=== PATIENT | female | born 1965 | race Caucasian/White ===

== ENCOUNTER 2017-08-25 15:56 | Emergency (ER) | payer BC, OTHER ==
--- NOTE | 2017-08-25 16:02 | UC ---
Laceration HPI - HPI Summary HPI Summary: 52 year old female presents with complains of left index finger laceration. 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 TUBAL LIGATION MANY YEARS AGO. 2010 LEFT INGUINAL HERNIA [place]PAIR, [facility] [place]GERY TO INSERT MESH TO SUPPORT BLADDER AND UTERUS, (states mesh attatched to spine). 2014 RIGHT FOOT BUNIONECTOMY, [facility] [place]. 09/2015 REMOVAL OF SCREW RIGHT FOOT FIRST METATARSAL, [facility] [place] - Family History Known Family History: Negative: Blood Disorder - Social History Alcohol Use: Rare Alcohol Amount: HOLIDAYS Substance Use Type: None Smoking Status (MU): Heavy Every Day Tobacco Smoker Type: Cigarettes Amount Used/How Often: PACK A DAY FOR ABOUT 25 YEARS Length of Time of Smoking/Using Tobacco: 30 YRS Have You Smoked in the Last Year: Yes - Immunization History Most Recent Tetanus Shot: UNKNOWN Review of Systems Constitutional: Negative Skin: Other - left index finger laceration Eyes: Negative ENT: Negative Respiratory: Negative Cardiovascular: Negative Gastrointestinal: Negative Genitourinary: Negative Motor: Negative Neurovascular: Negative Musculoskeletal: Negative Neurological: Negative Psychological: Negative Is Patient Immunocompromised?: Yes All Other Systems Reviewed And Are Negative: Yes Physical Exam Triage Information Reviewed: Yes Vital Signs Reviewed: Yes Eye Exam: Normal ENT Exam: Normal Dental Exam: Normal Neck exam: Normal Neck: Positive: 1 Respiratory Exam: Normal Cardiovascular Exam: Normal Abdominal Exam: Normal Musculoskeletal Exam: Normal Neurological Exam: Normal Psychological Exam: Normal Skin: Positive: Other - left index finger laceration Laceration Repair - Laceration Repair 1 Description: Irregular Laceration Size After Repair: Length (cm) - 2.5 to 5 cm Type Injection: Local Anesthesia Used: 1.0% Lido Cleansing Completed Via Routine Prep: Yes Irrigation With Pressure Irrigation Device: Yes Closure Material: Sutures Closure Method: Single Layer Suture Of: Skin Suture Type: Other - ethilon 5.0 #4 Laceration Course/Dx - Differential Dx - Laceration/Wound Provider Diagnoses: left index finger laceration Discharge - Discharge Plan Condition: Stable Disposition: HOME Prescriptions: Cephalexin CAP* [Keflex CAP*] 500 mg PO TID #30 cap Fluconazole [Diflucan 150 MG (NF)] 150 mg PO ONCE #1 tab Patient Education Materials: Laceration (ED) Forms: *Work Release Referrals: Aishwarya Mercado MD [Primary Care Provider] -
[2017-08-25 16:09] VITALS: BP 115/66
[2017-08-25] MEDS ORDERED: Lidocaine 1% MPF* 2 ML VIAL INJ ONE (16:13)
[2017-08-25] MEDS ORDERED: Lidocaine 1% MPF* 2 ML VIAL ONE (16:14)
== END 2017-08-25 16:55 | disposition home or self-care (01) ==
LOC: UCCORT 15:56
DX: S61.211A Laceration without foreign body of left index finger without damage to nail, initial encounter (principal); X58.XXXA Exposure to other specified factors, initial encounter
CPT/HCPCS: 12002; 99212; G0463

== ENCOUNTER 2017-10-29 18:35 | Emergency (ER) | payer BC, MEDICAID ==
--- OUTSIDE RECORDS SUMMARY | 2017-10-29 18:49 | XMS REPORT ---
:1965 External Reference #:[id number] Author Organization [facility] 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 Payers Type Date Identification Numbers Payment Provider Subscriber Commercial Policy Number: BC/BS Traditional Scott Hanson [id number] Ppo Group Number: EMPERATRIZ DONATO [address] [address] [place] [address] Medigap Part B Policy Number: [id number] Medicaid/[employer] Nida Hanson PayID: [id number] [address] [place] [address] Problems Description No Information Family History Date Family Member(s) Problem(s) Comments : (age 73 Years) Father due to Heart Disease : (age 67 Years) Mother due to Breast Cancer Children 2 Social History Type Date Description Comments Marital Status Has been 1 time 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 WITH 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 ETOH Use Occasionally consumes alcohol Smoking Patient is a current smoker, smokes SMOKES ABOUT 1 PPD-STARTED AT every day 19 YO Daily Caffeine Consumes on average 2 liters of soda per day Daily Caffeine Used To Drink Energy Drinks Often Allergies, Adverse Reactions, Alerts Date Description Reaction Status Severity Comments 09/06/2015 NKDA active Medications Medication Date Status Form Strength Qnty SIG Indications Ordering Provider Azithromycin Active Tablets 250mg 6tabs 2 tabs by J20.9 Aishwarya Mercado 7 mouth on M., MJose Angel day 1, then 1 tab by mouth every day x 4 days J01.90 Prednisone 10/26/2017 Active Tablets 20mg 20tabs 2 tab by mouth daily J20.9 Rogelio, 4 days,30mg Ahmad [id number] Harpreet Genao Benzonatate 10/26/2017 Active Capsules 200mg 30caps 1 cap by mouth three R05 Rogelio, times a day as Ahmad needed Harpreet Genao Cheratussin 10/23/2017 Hx Syrup 100-1 150unit teaspoon 1 every 4 R05 Rogelio, ac - 0mg/5 s hours as needed Ahmad 11/02/2017 ML Harpreet Genao Omeprazole 07/16/2017 Active Capsules 40mg 90caps 1 by mouth every day K21.9 Rogelio, DR Aishwarya Genao M.D. Amoxicillin/C 10/02/2017 Hx Tablets 875-1 20tabs 1 tab by mouth twice J01.90 [facility], lavulanate - 25mg a day Ahmad Potassium 10/12/2017 Harpreet Genao J2Bob Methylprednisolone 10/02/2017 - Hx TBPK 4mg 21units take tabs by J20Aliya Rogelio, 10/07/2017 mouth daily Ahmad per Harpreet Genao instructions on dose pack Benzonatate 10/02/2017 - Hx Capsules 200mg 30caps 1 Cap PO tid J20.9 Rogelio, 10/09/2017 prn Aishwarya Genao M.D. R05 Bacitracin 07/16/2017 - Hx Ointment 500Unit/GM 30gm apply to L02.91 [facility], (External) 07/23/2017 affected Aishwarya Genao, area three M.DJuan times a day as needed till healed No Active 03/17/2016 - Hx Unknown Medications 07/16/2017 Amoxicillin 01/10/2016 - Hx Tablets 500mg 40tabs 2 by mouth Rogelio, 01/20/2016 twice a Ahmad M., day M.D. Prednisone 01/10/2016 - Hx Tablets 20mg 8tabs 2 tab by Rogelio, 01/14/2016 mouth Ahmad M., daily 4 M.D. days Diflucan 01/10/2016 - Hx Tablets 150mg 2tabs 1 tab by Rogelio, 01/12/2016 mouth Aishwarya Genao, today and M.DJuan repeat in 1 wk prn Cheratussin ac 01/10/2016 - Hx Syrup 100-10mg/5ML 473ml 2 teaspoon Rogelio, 01/20/2016 by mouth Aishwarya Genao, every 4 M.D. hours as needed Betamethasone 09/06/2015 - Hx Cream 0.05% 45GR apply to L20.89 [facility], Dipropionate 03/17/2016 affected Aishwarya Genao, area twice M.D. a day as needed Ibuprofen - Hx Tablets 800mg prn Unknown 03/17/2016 Immunizations CPT Code Status Date Vaccine Lot # [id number] Given 09/06/2015 Flu Vaccine Vital Signs Date Vital Result Comment 10/26/2017 BP Systolic 102 mmHg BP Diastolic 58 mmHg Height 62 inches 5'2" Weight 123.00 lb BMI (Body Mass Index) 22.5 kg/m2 Heart Rate 77 /min Body Temperature 96.5 F Respiratory Rate 16 /min 10/23/2017 BP Systolic 102 mmHg BP Diastolic 60 mmHg Height 62 inches 5'2" Weight 123.00 lb BMI (Body Mass Index) 22.5 kg/m2 Heart Rate 70 /min Body Temperature 97.5 F Respiratory Rate 16 /min 10/02/2017 BP Systolic 100 mmHg BP Diastolic 60 mmHg Height 62 inches 5'2" Weight 123.00 lb BMI (Body Mass Index) 22.5 kg/m2 Heart Rate 84 /min Body Temperature 97.0 F Respiratory Rate 16 /min 08/03/2017 BP Systolic 102 mmHg BP Diastolic 60 mmHg Height 62 inches 5'2" Weight 121.00 lb BMI (Body Mass Index) 22.1 kg/m2 Heart Rate 80 /min Respiratory Rate 16 /min 07/16/2017 BP Systolic 116 mmHg BP Diastolic 62 mmHg Height 62 inches 5'2" Weight 120.00 lb BMI (Body Mass Index) 21.9 kg/m2 Heart Rate 72 /min Respiratory Rate 16 /min 01/10/2016 BP Systolic 98473 mmHg Height 62 inches 5'2" Weight 137.00 lb BMI (Body Mass Index) 25.1 kg/m2 Heart Rate 90 /min Body Temperature 97.4 F Respiratory Rate 20 /min 09/21/2015 BP Systolic 122 mmHg BP Diastolic 76 mmHg Height 62 inches 5'2" Weight 131.00 lb BMI (Body Mass Index) 24.0 kg/m2 Heart Rate 72 /min Respiratory Rate 12 /min 09/06/2015 BP Systolic 116 mmHg BP Diastolic 74 mmHg Height 62 inches 5'2" Weight 129.00 lb BMI (Body Mass Index) 23.6 kg/m2 Heart Rate 80 /min Respiratory Rate 16 /min Results Test Date Test Result H/L Range Note CBC With Diff 07/16/2017 WBC 7.3 10*3/uL (4.1-11.0) RBC 4.79 10*6/uL (4.00-5.40) HGB 14.1 g/dL (12.0-16.0) HCT 41.4 % (36.0-47.0) MCV 86.3 fL (80.0-95.0) MCH 29.4 pg (27.0-32.0) MCHC 34.0 g/dL (32.0-36.0) RDW 13.3 % (10.5-14.5) PLT 272 10*3/uL (150-450) MPV 9.4 fL (7.1-10.7) Neut % 63.7 % (35.0-75.0) Lymph % 28.3 % (16.0-52.0) [place] % 6.0 % (0.0-8.0) Eos % 0.9 % (0.0-5.0) Baso % 1.1 % (0.0-4.0) Neut # 4.6 10*3/uL (1.8-7.7) Lymph # 2.1 10*3/uL (1.2-4.8) [place] # 0.4 10*3/uL (0.0-0.8) Eos # 0.1 10*3/uL (0.0-0.5) Baso # 0.1 10*3/uL (0.0-0.2) CMP 07/16/2017 Sodium 140 mmol/L (136-145) Potassium 3.7 mmol/L (3.6-5.2) Chloride 107 mmol/L (100-108) Co2 25 mmol/L (22-31) Anion Gap 8 mmol/L (7-16) Urea Nitrogen 9 mg/dL (7-24) Creatinine 0.67 mg/dL (0.60-1.00) BUN/Creat Ratio 13.4 RATIO (10.0-20.0) Glucose 74 mg/dL (70-99) Calcium 8.4 mg/dL (8.4-10.2) Total Protein 6.6 g/dL (6.4-8.2) Albumin 3.9 g/dL (3.5-4.6) Globulin 2.7 g/dL (2.7-4.3) Alb/Glob Ratio 1.4 RATIO Alkaline Phosphatase 57 U/L (45-117) Bilirubin,Total 0.6 mg/dL (0.0-1.0) Ast (Sgot) 15 U/L (11-39) Alt (SGPT) 15 U/L (12-78) GFR >60 ml/min/1.73m2 (>59) GFR ( Amer) >60 ml/min/1.73m2 (>59) GFR Interpretation <SEE NOTE> 1 Laboratory test finding 07/16/2017 Amylase 58 U/L (25-115) Lipase 149 U/L (65-230) Esr 2 mm/h (0-30) CBC With Diff 09/21/2015 WBC 5.8 10*3/uL (4.1-11.0) RBC 4.88 10*6/uL (4.00-5.40) HGB 14.3 g/dL (12.0-16.0) HCT 43.5 % (36.0-47.0) MCV 89.1 fL (80.0-95.0) MCH 29.2 pg (27.0-32.0) MCHC 32.8 g/dL (32.0-36.0) RDW 13.0 % (10.5-14.5) PLT 288 10*3/uL (150-450) MPV 9.0 fL (7.1-10.7) Neut % 63.2 % (35.0-75.0) Lymph % 25.9 % (16.0-52.0) [place] % 6.7 % (0.0-8.0) Eos % 2.8 % (0.0-5.0) Baso % 1.4 % (0.0-4.0) Neut # 3.6 10*3/uL (1.8-7.7) Lymph # 1.5 10*3/uL (1.2-4.8) [place] # 0.4 10*3/uL (0.0-0.8) Eos # 0.2 10*3/uL (0.0-0.5) Baso # 0.1 10*3/uL (0.0-0.2) CMP 09/21/2015 Sodium 142 mmol/L (136-145) Potassium 3.6 mmol/L (3.6-5.2) Chloride 108 mmol/L (100-108) Co2 27 mmol/L (22-31) Anion Gap 7 mmol/L (7-16) Urea Nitrogen 13 mg/dL (7-24) Creatinine 0.80 mg/dL (0.60-1.00) BUN/Creat Ratio 16.3 RATIO (10.0-20.0) Glucose 75 mg/dL (70-99) Calcium 8.6 mg/dL (8.4-10.2) Total Protein 6.6 g/dL (6.4-8.2) Albumin 3.8 g/dL (3.5-4.6) Globulin 2.8 g/dL (2.7-4.3) Alb/Glob Ratio 1.4 RATIO Alkaline Phosphatase 71 U/L (45-117) Bilirubin,Total 0.5 mg/dL (0.0-1.0) Ast (Sgot) 13 U/L (11-39) Alt (SGPT) 13 U/L (12-78) GFR >60 ml/min/1.73m2 (>59) GFR ( Amer) >60 ml/min/1.73m2 (>59) GFR Interpretation <SEE NOTE> 2 1 NORMAL KIDNEY FUNCTION OR MILD DISEASE - GFR >OR=60 CHRONIC KIDNEY DISEASE - GFR 15 - 59 RENAL FAILURE - GFR <15 Est. GFR calculation based on the MDRD study equation, which assumes a steady state for creatinine. Est. GFR should not be used for medication dosing. 2 NORMAL KIDNEY FUNCTION OR MILD DISEASE - GFR >OR=60 CHRONIC KIDNEY DISEASE - GFR 15 - 59 RENAL FAILURE - GFR <15 Est. GFR calculation based on the MDRD study equation, which assumes a steady state for creatinine. Est. GFR should not be used for medication dosing. Procedures Date CPT Code Description Status 10/26/2017 91479 Spirometry Completed 10/23/2017 85980 Spirometry Completed 10/23/2017 11953 Tympanometry Completed 01/10/2016 77625 Spirometry Completed 01/10/2016 38784 Tympanometry Completed 09/06/2015 11173 Visual Screening Test Completed 09/06/2015 09932 EKG Completed 09/06/2015 83681 Audiometry, Bekesy, Screening Completed Encounters Type Date Location Provider CPT E/M Dx Office Visit 10/26/2017 2:30[place] [address] J30.9 F17.210 L20.9 K58.0 K21.9 R09.81 J01.90 J20.9 R06.02 R05 Office Visit 10/23/2017 10:15a Fabián Ling [employer] 22414 R05 R50.9 H92.09 Office Visit 10/02/2017 11:30[place] [address] J30.9 F17.210 L20.9 K58.0 K21.9 R05 R09.81 J01.90 J20.9 R06.02 Office Visit 08/03/2017 4:45p Aishwarya Aamdor M.D. 76169 J30.9 F17.210 L20.9 R10.84 K58.0 K21.9 L02.91 Office Visit 07/16/2017 11:30a Aishwarya Amador M.D. 33338 J30.9 F17.210 L20.9 R10.84 K58.0 K21.9 L02.91 Office Visit 01/10/2016 2:00p Aishwarya Amador M.D. 71789 J20.9 J01.40 H66.93 R05 R06.02 R09.81 J30.9 F17.210 L20.9 Office Visit 09/21/2015 8:30a Fabián Ling [facility] [address]7877 Z01.818 F17.200 M79.671 Office Visit 09/06/2015 1:30p Fabián Ling [facility] 15753 Z00.01 F17.200 R05 E55.9 E03.9 L20.89 Plan of Care 10/26/2017 - Jean Paul Sung PAJ30.9 Allergic rhinitis, unspecifiedComments: INCREASE PO FLUID USE ANTIHISTAMINE PRN SECOND HAND SMOKING AVOIDANCE SMOKING MAHRDHKYVE30.210 Nicotine dependence, cigarettes, uncomplicatedComments:SMOKING CESSATION BCCIRNBYWKFO62.9 Atopic dermatitis, unspecifiedComments:SKIN CARE INSTRUCTIONS LOTION OR BABY OIL 2-3 APPLICATION PER DAYUSE MOISTURIZING SOAPAVOID PROLONGED WATER EXPOSUREAVOID USING HOT WATER IN EURQBEE41.0 Irritable bowel syndrome with diarrheaComments:TYLENOL OR MOTRIN PRNINCREASE PO FLUIDF/U PIMSWSNNN08.9 Gastro-esophageal reflux disease without esophagitisComments:AVOID CAFFEINE, ETOH AND SPICY FOODSTUMS OR MYLANTA PRN CALL WITH PROBLEMS OR CONCERNSSMOKING OQVNLFSUSA03.81 Nasal congestionComments: INCREASE PO FLUIDTYLENOL OR MOTRIN PRNREST USE ANTIHISTAMINE PRNJ01.90 Acute sinusitis, unspecifiedNew Medication:Azithromycin 250 mgComments:INCREASE PO FLUIDTYLENOL OR MOTRIN PRNREST USE ANTIHISTAMINE PRNJ20.9 Acute bronchitis, unspecifiedNew Medication:Azithromycin 250 mgPrednisone 20 mgComments:INCREASE PO FLUIDTYLENOL OR MOTRIN PRNREST USE ANTIHISTAMINE PRN NEB OR MDI PRN XBKXEFJPGCV72.02 Shortness of breathComments:INCREASE PO FLUIDSREST REGULARLYNEB OR MDI [id number] CoughNew Medication:Benzonatate 200 mgComments: INCREASE CLEAR LIQUIDSSTEAMGARGLE WARM SALT H2O TID ROBITUSSIN DM PRN
--- OUTSIDE RECORDS SUMMARY | 2017-10-29 18:50 | XMS REPORT ---
:1965 External Reference #:[id number] Author Organization [facility] Address [address] [place] [address] Phone [phone] Care Team Providers Name Role Phone Aishwarya Mercado MD Care Team Information Pattern Cutter Unavailable Payers Type Date Identification Numbers Payment Provider Subscriber Commercial Policy Number: BC/BS Traditional Scott Hanson [id number] Ppo Group Number: EMPERATRIZ DONATO [address] [address] [place] [address] Medigap Part B Policy Number: [id number] Medicaid/[employer] Nida Hanson PayID: [id number] [address] [place] [address] Problems Description No Information Family History Date Family Member(s) Problem(s) Comments : (age 73 Years) Father due to Heart Disease : (age 67 Years) Mother due to Breast Cancer Children 2 Social History Type Date Description Comments Marital Status Has been 1 time 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 needed Omeprazole 07/16/ Active Capsules 40mg 90caps 1 by mouth K21.9 Rogelio, 2017 every day Aishwarya Genao M.D. Amoxicillin/Cl 10/02/ Hx Tablets 875-125mg 20tabs 1 tab by J01.90 Rogeloi avulanate 2016 - mouth Aishwarya Genao, Potassium 10/12/ twice a M.D. 2016 day J20.9 Methylprednisolone 10/02/2017 - Hx TBPK 4mg 21units take tabs by J20.9 Rogelio, 10/07/2017 mouth daily Ahbryon Genao M.D. instructions on dose pack Benzonatate 10/02/2017 - Hx Capsules 200mg 30caps 1 Cap PO tid J20.9 Rogelio, 10/09/2017 prn Aishwarya Genao M.D. R05 Bacitracin 07/16/2017 - Hx Ointment 500Unit/GM 30gm apply to L02.91 Rogelio, (External) 07/23/2017 affected Aishwarya Genao, area three M.D. times a day as needed till healed No Active 03/17/2016 - Hx Unknown Medications 07/16/2017 Amoxicillin 01/10/2016 - Hx Tablets 500mg 40tabs 2 by mouth Rogelio, 01/20/2016 twice a Aishwarya Genao, day M.D. Prednisone 01/10/2016 - Hx Tablets 20mg 8tabs 2 tab by Rogelio, 01/14/2016 mouth Aishwarya Genao, daily 4 M.D. days Diflucan 01/10/2016 - Hx Tablets 150mg 2tabs 1 tab by Rogelio, 01/12/2016 mouth Aishwarya Genao, today and M.D. repeat in 1 wk prn Cheratussin ac 01/10/2016 - Hx Syrup 100-10mg/5ML 473ml 2 teaspoon Rogelio, 01/20/2016 by mouth Aishwarya Genao, every 4 M.D. hours as needed Betamethasone 09/06/2015 - Hx Cream 0.05% 45GR apply to L20.89 Rogelio, Dipropionate 03/17/2016 affected Aishwarya Genao, area twice M.D. a day as needed Ibuprofen - Hx Tablets 800mg prn Unknown 03/17/2016 Immunizations CPT Code Status Date Vaccine Lot # [id number] Given 09/06/2015 Flu Vaccine Vital Signs Date Vital Result Comment 10/23/2017 BP Systolic 102 mmHg BP Diastolic [...] Respiratory Rate 16 /min 01/10/2016 BP Systolic 97163 mmHg Height 62 inches 5'2" Weight 137.00 [...] % (35.0-75.0) Lymph % 28.3 % (16.0-52.0) [place] % 6.0 % (0.0-8.0) Eos % 0.9 % (0.0-5.0) Baso % 1.1 % (0.0-4.0) Neut # 4.6 10*3/uL (1.8-7.7) Lymph # 2.1 10*3/uL (1.2-4.8) [place] # 0.4 10*3/uL (0.0-0.8) Eos # 0.1 [...] % (35.0-75.0) Lymph % 25.9 % (16.0-52.0) [place] % 6.7 % (0.0-8.0) Eos % 2.8 % (0.0-5.0) Baso % 1.4 % (0.0-4.0) Neut # 3.6 10*3/uL (1.8-7.7) Lymph # 1.5 10*3/uL (1.2-4.8) [place] # 0.4 10*3/uL (0.0-0.8) Eos # 0.2 [...] dosing. Procedures Date CPT Code Description Status 10/23/2017 55638 Spirometry Completed 10/23/2017 10833 Tympanometry Completed 01/10/2016 60110 Spirometry Completed 01/10/2016 94087 Tympanometry Completed 09/06/2015 92071 Visual Screening Test Completed 09/06/2015 57837 EKG Completed 09/06/2015 82499 Audiometry, Bekesy, Screening Completed Encounters Type Date Location Provider CPT E/M Dx Office Visit 10/02/2017 11:30[place] [address] J30.9 F17.210 L20.9 K58.0 K21.9 R05 R09.81 J01.90 J20.9 R06.02 Office Visit 08/03/2017 4:45p Aishwarya Amador M.D. 70730 J30.9 F17.210 L20.9 R10.84 K58.0 K21.9 L02.91 Office Visit 07/16/2017 11:30a Aishwarya Amador M.D. 17481 J30.9 F17.210 L20.9 R10.84 K58.0 K21.9 L02.91 Office Visit 01/10/2016 2:00p Aishwarya Amador M.D. 84828 J20.9 J01.40 H66.93 R05 R06.02 R09.81 J30.9 F17.210 L20.9 Office Visit 09/21/2015 8:30a Ina Brown Fabián [facility] 59925 Z01.818 F17.200 M79.671 Office Visit 09/06/2015 1:30p Fabián Ling [facility] 78535 Z00.01 F17.200 R05 E55.9 E03.9 L20.89 Plan of Care 10/23/2017 - Fabián Brown [id number] CoughNew Medication:Cheratussin ac 100-10 mg/ 5MLR50.9 Fever, unspecifiedComments:TYLENOL/IBUPROFEN ALTERNATING Q 3-4 HRSINCREASE FLUIDS
--- OUTSIDE RECORDS SUMMARY | 2017-10-29 18:50 | XMS REPORT ---
:1965 External Reference #:[id number] Author Organization [facility] Address [address] [place] [address] Phone [phone] Care Team Providers Name Role Phone Aiswharya Mercado MD Care Team Information Telemarketer Unavailable Payers Type Date Identification Numbers Payment Provider Subscriber Commercial Policy Number: BC/BS Traditional Scott Hanson [id number] Ppo Group Number: EMPERATRIZ DONATO [address] [address] [place] [address] Medigap Part B Policy Number: [id number] Medicaid/[employer] Nida Hansno PayID: [id number] [address] [place] [address] Problems Description No Information Family History Date Family Member(s) Problem(s) Comments : (age 73 Years) Father due to Heart Disease : (age 67 Years) Mother due to Breast Cancer Children 2 Social History Type Date Description Comments Marital Status Has been 1 time 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 2018 needed Omeprazole 07/16/ Active Capsules 40mg 90caps 1 by mouth K21.9 [facility], 2017 DR every day Aishwarya Genao M.D. Amoxicillin/Cl 10/02/ Hx Tablets 875-125mg 20tabs 1 tab by J01.90 toya Mercado 2016 - mouth Aishwarya Genao, Potassium 10/12/ twice a M.D. 2016 day J20.9 Methylprednisolone 10/02/2017 - Hx TBPK 4mg 21units take tabs by J20.9 Rogelio, 10/07/2017 mouth daily Ahmamay Genao M.D. instructions on dose pack Benzonatate 10/02/2017 - Hx Capsules 200mg 30caps 1 Cap PO tid J20.9 Rogelio, 10/09/2017 prn Aishwarya Genao M.D. R05 Bacitracin 07/16/2017 - Hx Ointment 500Unit/GM 30gm apply to L02.91 [facility], (External) 07/23/2017 affected Aishwarya Genao, area [...] Hx Cream 0.05% 45GR apply to L20.89 [facility], Dipropionate 03/17/2016 affected Aishwarya M., area twice M.D. a day as needed Ibuprofen - Hx Tablets 800mg prn Unknown 03/17/2016 Immunizations CPT Code Status Date Vaccine Lot # [id number] Given 09/06/2015 Flu Vaccine Vital Signs Date [...] Respiratory Rate 16 /min 01/10/2016 BP Systolic 02412 mmHg Height 62 inches 5'2" Weight 137.00 [...] % (35.0-75.0) Lymph % 28.3 % (16.0-52.0) [place] % 6.0 % (0.0-8.0) Eos % 0.9 % (0.0-5.0) Baso % 1.1 % (0.0-4.0) Neut # 4.6 10*3/uL (1.8-7.7) Lymph # 2.1 10*3/uL (1.2-4.8) [place] # 0.4 10*3/uL (0.0-0.8) Eos # 0.1 [...] % (35.0-75.0) Lymph % 25.9 % (16.0-52.0) [place] % 6.7 % (0.0-8.0) Eos % 2.8 % (0.0-5.0) Baso % 1.4 % (0.0-4.0) Neut # 3.6 10*3/uL (1.8-7.7) Lymph # 1.5 10*3/uL (1.2-4.8) [place] # 0.4 10*3/uL (0.0-0.8) Eos # 0.2 [...] Procedures Date CPT Code Description Status 10/23/2017 04074 Spirometry Completed 10/23/2017 70111 Tympanometry Completed 01/10/2016 00377 Spirometry Completed 01/10/2016 11641 Tympanometry Completed 09/06/2015 10771 Visual Screening Test Completed 09/06/2015 17354 EKG Completed 09/06/2015 48087 Audiometry, Bekesy, Screening Completed Encounters Type Date Location Provider CPT E/M Dx Office Visit 10/23/2017 10:15a Fabián Ling [facility] [address] R05 R50.9 H92.09 Office Visit 10/02/2017 11:30[place] [address] J30.9 F17.210 L20.9 K58.0 K21.9 R05 R09.81 J01.90 J20.9 R06.02 Office Visit 08/03/2017 4:45p Aishwarya Amador M.D. 84584 J30.9 F17.210 L20.9 R10.84 K58.0 K21.9 L02.91 Office Visit 07/16/2017 11:30a Aishwarya Amador M.D. 71820 J30.9 F17.210 L20.9 R10.84 K58.0 K21.9 L02.91 Office Visit 01/10/2016 2:00p Aishwarya Amador M.D. 25645 J20.9 J01.40 H66.93 R05 R06.02 R09.81 J30.9 F17.210 L20.9 Office Visit 09/21/2015 8:30a Fabián Ling [facility] [address] Z01.818 F17.200 M79.671 Office Visit 09/06/2015 1:30p Fabián Ling [facility] [address] Z00.01 F17.200 R05 E55.9 E03.9 L20.89 Plan of Care 10/23/2017 - StephanieWilly FNPR05 CoughNew Medication:Cheratussin ac 100-10 mg/ 5MLR50.9 Fever, unspecifiedComments:TYLENOL/IBUPROFEN ALTERNATING Q 3-4 HRSINCREASE KDPZJXJ24.09 Otalgia, unspecified earComments:INCREASE PO FLUID
--- OUTSIDE RECORDS SUMMARY | 2017-10-29 18:51 | XMS REPORT ---
:1965 External Reference #:[id number] Author Organization [facility] Address [address] [facility]/[address] [place] [address] Phone [phone] Care Team Providers Name Role Phone Aishwarya Mercado MD Care Team Information Imaging Technologist Unavailable Payers Type Date Identification Numbers Payment Provider Subscriber Commercial Policy Number: BC/BS Traditional Scott Hanson [id number] Ppo Group Number: [employer] DONATO [address] [address] [place] [address] Medigap Part B Policy Number: [id number] Medicaid/[employer] Nida Hanson PayID: [id number] [address] [place] [address] Problems Description No Information Family History Date Family Member(s) Problem(s) Comments : (age 73 Years) Father due to Heart Disease : (age 67 Years) Mother due to Breast Cancer Children 2 Social History Type Date Description Comments Marital Status Has been 1 time NOT WITH 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 17 day J20.9 Methylprednisolone 10/02/2017 - Hx TBPK 4mg 21units take tabs by J20.9 Rogelio, 10/07/2017 mouth daily Aishwarya Genao M.D. instructions on dose pack Benzonatate 10/02/2017 - Hx Capsules 200mg 30caps 1 Cap PO tid J20.9 Rogelio, 10/09/2017 prn Aishwarya Genao M.D. R05 Omeprazole 07/16/2017 Active Capsules 40mg 90caps [address] Rogelio every day Aishwarya Genao M.D. Bacitracin 07/16/2017 - Hx Ointment 500Uni 30gm apply to L02.91 Rogelio, (External) 07/23/2017 t/GM affected Aishwarya Genao, area three M.D. times [...] prn Cheratussin ac 01/10/2016 - Hx Syrup 100-10 473ml 2 teaspoon [facility], 01/20/2016 mg/5ML by mouth Aishwarya Genao, every 4 M.D. hours as needed Betamethasone 09/06/2015 - Hx Cream 0.05% 45GR apply to L20.89 [facility] Dipropionate 03/17/2016 affected Ahmamay M., area twice M.D. a day as needed Ibuprofen - Hx Tablets 800mg prn Unknown 03/17/2016 Immunizations CPT Code Status Date Vaccine Lot # [id number] Given 09/06/2015 Flu Vaccine Vital Signs Date Vital Result Comment 10/02/2017 BP Systolic 100 mmHg BP Diastolic [...] Respiratory Rate 16 /min 01/10/2016 BP Systolic 28665 mmHg Height 62 inches 5'2" Weight 137.00 [...] % (35.0-75.0) Lymph % 28.3 % (16.0-52.0) Lake % 6.0 % (0.0-8.0) Eos % 0.9 % (0.0-5.0) Baso % 1.1 % (0.0-4.0) Neut # 4.6 10*3/uL (1.8-7.7) Lymph # 2.1 10*3/uL (1.2-4.8) Lake # 0.4 10*3/uL (0.0-0.8) Eos # 0.1 [...] % (35.0-75.0) Lymph % 25.9 % (16.0-52.0) Lake % 6.7 % (0.0-8.0) Eos % 2.8 % (0.0-5.0) Baso % 1.4 % (0.0-4.0) Neut # 3.6 10*3/uL (1.8-7.7) Lymph # 1.5 10*3/uL (1.2-4.8) Lake # 0.4 10*3/uL (0.0-0.8) Eos # 0.2 [...] dosing. Procedures Date CPT Code Description Status 01/10/2016 92342 Spirometry Completed 01/10/2016 61927 Tympanometry Completed 09/06/2015 48473 Visual Screening Test Completed 09/06/2015 97425 EKG Completed 09/06/2015 75758 Audiometry, Bekesy, Screening Completed Encounters Type Date Location Provider CPT E/M Dx Office Visit 10/02/2017 11:30[place] [address] J30.9 F17.210 L20.9 K58.0 K21.9 R05 R09.81 J01.90 J20.9 R06.02 Office Visit 08/03/2017 4:45p Aishwarya Amador M.D. 91510 J30.9 F17.210 L20.9 R10.84 K58.0 K21.9 L02.91 Office Visit 07/16/2017 11:30a Aishwarya Amador M.D. 34132 J30.9 F17.210 L20.9 R10.84 K58.0 K21.9 L02.91 Office Visit 01/10/2016 2:00p Aishwarya Amador M.D. 86601 J20.9 J01.40 H66.93 R05 R06.02 R09.81 J30.9 F17.210 L20.9 Office Visit 09/21/2015 8:30a Fabián Ling [facility] [address] Z01.818 F17.200 M79.671 Office Visit 09/06/2015 1:30p Fabián Ling [facility] [address]1890 Z00.01 F17.200 R05 E55.9 E03.9 L20.89 Plan of Care 10/02/2017 - Jean Paul Sung PAJ30.9 Allergic rhinitis, unspecifiedComments: INCREASE PO FLUID USE ANTIHISTAMINE PRN SECOND HAND SMOKING AVOIDANCE SMOKING LAPQOWYTAP57.210 Nicotine dependence, cigarettes, uncomplicatedComments:SMOKING CESSATION WJIZYBAEXIFA14.9 Atopic dermatitis, unspecifiedComments:SKIN CARE INSTRUCTIONS LOTION OR BABY OIL 2-3 APPLICATION PER DAYUSE MOISTURIZING SOAPAVOID PROLONGED WATER EXPOSUREAVOID USING HOT WATER IN QQWEHXR37.0 Irritable bowel syndrome with diarrheaComments:TYLENOL OR MOTRIN PRNINCREASE PO FLUIDF/U SPGRCJTIW14.9 Gastro-esophageal reflux disease without esophagitisComments:AVOID CAFFEINE, ETOH AND SPICY FOODSTUMS OR MYLANTA PRN CALL WITH PROBLEMS OR CONCERNSSMOKING [id number] CoughNew Medication: Benzonatate 200 mgComments:INCREASE CLEAR LIQUIDSSTEAMGARGLE WARM SALT H2O TID ROBITUSSIN DM PRNR09.81 Nasal plfyjbnuvzG85.90 Acute sinusitis, unspecifiedNew Medication:Amoxicillin/Clavulanate Potassium 875-125 mgComments:INCREASE PO FLUIDTYLENOL OR MOTRIN PRNREST USE ANTIHISTAMINE PRNJ20.9 Acute bronchitis, unspecifiedNew Medication:Amoxicillin/Clavulanate Potassium 875-125 mgMethylprednisolone 4 mgBenzonatate 200 mgR06.02 Shortness of breathComments: INCREASE PO FLUIDSREST REGULARLYNEB OR MDI NEEDED
[2017-10-29 19:02] VITALS: BP 156/81
[2017-10-29] MEDS ORDERED: Albuterol/Ipratropium NEB.SOL* Albuterol 2.5 MG/Ipratropium 0.5 MG 3 ML INH ONE (19:14)
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
[2017-10-29] MEDS ORDERED: Albuterol HFA INHALER* 8 gm MDI INH ONE (19:44)
[2017-10-29] MEDS ORDERED: Benzonatate CAP* 100 MG PO ONE (19:44)
== END 2017-10-29 20:10 | disposition home or self-care (01) ==
LOC: UCCORT 18:35
DX: R05 Cough (principal); F17.210 Nicotine dependence, cigarettes, uncomplicated; R03.0 Elevated blood-pressure reading, without diagnosis of hypertension
CPT/HCPCS: 99213; A9270-GY; G0463

== ENCOUNTER 2017-11-01 11:22 | Emergency (ER) | payer BC, MEDICAID ==
[2017-11-01 11:56] VITALS: BP 120/65
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
--- NOTE | 2017-11-01 13:34 | RAD ---
INDICATION: Cough. 6 for one month. Tobacco use. COMPARISON: December 17, 2008 chest radiograph and May 24, [address] TECHNIQUE: Dual energy PA and routine lateral views of the chest were obtained. REPORT: Elevated lung volumes and diffuse mild prominence of interstitial markings. No alveolar consolidation, focal pulmonary lesion, pleural effusion, pneumothorax. The heart, pulmonary vasculature, and mediastinal contours are unremarkable. Unremarkable osseous structures. IMPRESSION: Stigmata of probable chronic obstructive pulmonary disease. No acute cardiopulmonary process evident.
== END 2017-11-01 14:12 | disposition home or self-care (01) ==
LOC: UCCORT 11:22
DX: J44.9 Chronic obstructive pulmonary disease, unspecified (principal); J40 Bronchitis, not specified as acute or chronic; F17.210 Nicotine dependence, cigarettes, uncomplicated
CPT/HCPCS: 71046; 99212; G0463

== ENCOUNTER 2018-01-06 14:43 | Emergency (ER) | payer BC, MEDICAID, OTHER ==
[2018-01-06 15:42] VITALS: BP 120/70
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
== END 2018-01-06 16:14 | disposition home or self-care (01) ==
LOC: UCCORT 14:43
DX: T22.211A Burn of second degree of right forearm, initial encounter (principal); T22.112A Burn of first degree of left forearm, initial encounter; T31.0 Burns involving less than 10% of body surface; X19.XXXA Contact with other heat and hot substances, initial encounter; Y93.G2 Activity, grilling and smoking food; Y92.89 Other specified places as the place of occurrence of the external cause; Y99.9 Unspecified external cause status; F17.210 Nicotine dependence, cigarettes, uncomplicated
CPT/HCPCS: 99212; G0463

== ENCOUNTER 2018-03-26 14:57 | Emergency (ER) | payer OTHER ==
--- OUTSIDE RECORDS SUMMARY | 2018-03-26 15:21 | XMS REPORT ---
:1965 External Reference #:[id number] Author Organization [facility] Address [address] [facility]/[address] [place] [address] Phone [phone] Care Team Providers Name Role Phone Aishwarya Mercado MD Care Team Information Ship Engineer Unavailable Payers Type Date Identification Numbers Payment Provider Subscriber Commercial Policy Number: BC/BS Traditional Scott Hanson [id number] Ppo Group Number: [employer] DONATO [address] [address] [place] [address] Medigap Part B Policy Number: [id number] Medicaid/[employer] Nida Hanson PayID: [id number] [address] [place] [address] Problems Description No Information Family History Date Family Member(s) Problem(s) Comments : (age 73 Years) Father due to Heart Disease : (age 67 Years) Mother due to Breast Cancer Children 2 Social History Type Date Description Comments Marital Status Has been 1 time NOT WITH 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 2018 days, then 2 tab daily x 3 d , then 1 tab daily 3d Betamethasone 12/26/ Active Cream 0.05% 45unit apply to L20.9 Rogelio, Dipropionate 2017 s affected Aishwarya Genao, area three M.D. times a day as needed Omeprazole 12/26/ Active Capsules 40mg 90caps 1 by mouth R10.84 Rogelio 2018 every day Aishwarya Genao M.D. R11.0 K21.9 Bupropion HCL 12/26/2017 Active Tablets ER 150mg 30tabs 1 by mouth F17.210 Rogelio ER (XL) 24HR every day Aishwarya Genao M.D. F41.9 Azithromycin Hx Tablets 250mg 1Pack 2 by mouth H66.92 Adrian Schaefer - today then 1 MACARIO Ramsay by mouth 018 next 4 days Ciprodex Hx Suspension 0.3-0.1 7.500ml 3 drops to H62.42 Adrian Schaefer - % Left ear MACARIO Ramsay three times 018 a day x5 days Diflucan Hx Tablets 150mg 2tabs 1 tab by H66.92 Adrian Schaefer - mouth today MACARIO Ramsay and repeat 018 in 3 days No Active Hx Unknown Medications 018 - 018 Azithromycin Hx Tablets 250mg 6tabs 2 tabs by J20.9 Aishwarya Mercado 017 - mouth on day M.ChadwickDJuan 1, then 1 018 tab by mouth every day x 4 days J01.90 Prednisone 10/26/2017 - Hx Tablets 20mg 20tabs 2 tab by mouth daily [id number] Rogelio, 11/29/2017 4 days,30mg Ahmad x3d,35mlx9t,05mpf0p Harpreet Genao Benzonatate 10/26/2017 - Hx Capsules 200mg 30caps 1 cap by mouth three R05 Rogelio, 11/29/2017 times a day as needed Aishwarya Genao M.D. Cheratussin 10/23/2017 - Hx Syrup 100-10 150units teaspoon 1 every 4 R05 Rogelio, ac 11/02/2017 mg/5ML hours as needed Aishwarya Genao M.D. Amoxicillin/C 10/02/2017 - Hx Tablets 875-12 20tabs 1 tab by mouth twice J01.90 [facility], lavulanate 10/12/2017 5mg a day Aishwarya Potassium Harpreet Genao J20.9 Methylprednisolone 10/02/2017 - Hx TBPK 4mg 21units take tabs by J20.9 [facility], 10/07/2017 mouth daily Aishwarya Genao M.D. instructions on dose pack Benzonatate 10/02/2017 - Hx Capsules 200mg 30caps 1 Cap PO tid J20.9 [facility], 10/09/2017 prn Aishwarya Genao M.D. R05 Omeprazole 07/16/2017 - Hx Capsules DR 40mg 90caps 1 by mouth K21.9 [facility], 11/29/2017 every day Aishwarya Genao M.D. Bacitracin 07/16/2017 - Hx Ointment 500Unit 30gm apply to L02.91 [facility], (External) 07/23/2017 /GM affected Aishwarya Genao, area three M.DJuan times a day as needed till healed No Active 03/17/2016 - Hx Unknown Medications 07/16/2017 Amoxicillin 01/10/2016 - Hx Tablets 500mg 40tabs 2 by mouth [facility], 01/20/2016 twice a day Aishwarya Genao M.D. Prednisone 01/10/2016 - Hx Tablets 20mg 8tabs 2 tab by [facility], 01/14/2016 mouth daily Aishwarya Genao, 4 days M.D. Diflucan 01/10/2016 - Hx Tablets 150mg 2tabs 1 tab by [facility], 01/12/2016 mouth today Ahbryon Genao, and repeat M.DJuan in 1 wk prn Cheratussin ac 01/10/2016 - Hx Syrup 100-10m 473ml 2 teaspoon [facility], 01/20/2016 g/5ML by mouth Aishwarya Genao, every 4 M.D. hours as needed Betamethasone 09/06/2015 - Hx Cream 0.05% 45GR apply to L20.89 [facility], Dipropionate 03/17/2016 affected Aishwarya CarreraJuan, area twice M.D. a day as needed Ibuprofen - Hx Tablets 800mg prn Unknown 03/17/2016 Immunizations CPT Code Status Date Vaccine Lot # [id number] Given 09/06/2015 Flu Vaccine Vital Signs Date Vital Result Comment 03/08/2018 BP Systolic 110 mmHg BP Diastolic 62 mmHg Height 62 inches 5'2" Weight 130.00 lb BMI (Body Mass Index) 23.8 kg/m2 Heart Rate 95 /min Respiratory Rate 18 /min 02/11/2018 BP Systolic 104 mmHg BP Diastolic 58 mmHg Height 62 inches 5'2" Weight 126.00 lb BMI (Body Mass Index) 23.0 kg/m2 Heart Rate 70 /min Respiratory Rate 16 /min 12/26/2017 BP Systolic 130 mmHg BP Diastolic 66 mmHg Height 62 inches 5'2" Weight 127.00 lb BMI (Body Mass Index) 23.2 kg/m2 Heart Rate 99 /min Respiratory Rate 16 /min 12/11/2017 BP Systolic 110 mmHg BP Diastolic 60 mmHg Height 62 inches 5'2" Weight 127.00 lb BMI (Body Mass Index) 23.2 kg/m2 Heart Rate 77 /min Respiratory Rate 16 /min 10/26/2017 BP Systolic 102 mmHg BP Diastolic [...] Respiratory Rate 16 /min 01/10/2016 BP Systolic 94732 mmHg Height 62 inches 5'2" Weight 137.00 [...] Test Date Test Result H/L Range Note Lipid 12/11/2017 Cholesterol @ 148 mg/dL (0-200) Triglyceride @ 182 mg/dL (30-200) HDL Cholesterol @ 40 mg/dL Low (>40) 1 Chol/HDL Ratio 3.7 RATIO 2 LDL Chol (Calc) 72 mg/dL (<130) 3 Laboratory test finding 12/11/2017 TSH,Ultrasensitive @ 1.510 mIU/L ( 0.360-4.170) CMP 12/11/2017 Sodium 141 mmol/L (136-145) Potassium 3.8 mmol/L (3.6-5.2) Chloride 106 mmol/L (100-108) Co2 29 mmol/L (22-31) Anion Gap 6 mmol/L Low (7-16) Urea Nitrogen 10 mg/dL (7-24) Creatinine 0.62 mg/dL (0.60-1.00) BUN/Creat Ratio 16.1 RATIO (10.0-20.0) Glucose 82 mg/dL (70-99) Calcium 8.5 mg/dL (8.4-10.2) Total Protein 6.4 g/dL (6.4-8.2) Albumin 3.5 g/dL (3.5-4.6) Globulin 2.9 g/dL (2.7-4.3) Alb/Glob Ratio 1.2 RATIO Alkaline Phosphatase 61 U/L (45-117) Bilirubin,Total 0.5 mg/dL (0.0-1.0) Ast (Sgot) 9 U/L Low (11-39) Alt (SGPT) 13 U/L (12-78) GFR >60 ml/min/1.73m2 (>59) GFR ( Amer) >60 ml/min/1.73m2 (>59) GFR Interpretation <SEE NOTE> 4 CBC With Diff 12/11/2017 WBC 6.6 10*3/uL (4.1-11.0) RBC 4.79 10*6/uL (4.00-5.40) HGB 14.0 g/dL (12.0-16.0) HCT 41.1 % (36.0-47.0) MCV 85.8 fL (80.0-95.0) MCH 29.2 pg (27.0-32.0) MCHC 34.1 g/dL (32.0-36.0) RDW 12.8 % (10.5-14.5) PLT 252 10*3/uL (150-450) MPV 9.1 fL (7.1-10.7) Neut % 70.4 % (35.0-75.0) Lymph % 21.8 % (16.0-52.0) [place] % 5.4 % (0.0-8.0) Eos % 1.2 % (0.0-5.0) Baso % 1.2 % (0.0-4.0) Neut # 4.6 10*3/uL (1.8-7.7) Lymph # 1.4 10*3/uL (1.2-4.8) [place] # 0.4 10*3/uL (0.0-0.8) Eos # 0.1 10*3/uL (0.0-0.5) Baso # 0.1 10*3/uL (0.0-0.2) CBC With Diff 07/16/2017 WBC 7.3 10*3/uL (4.1-11.0) RBC 4.79 10*6/uL (4.00-5.40) HGB 14.1 g/dL (12.0-16.0) HCT 41.4 % (36.0-47.0) MCV 86.3 fL (80.0-95.0) MCH 29.4 pg (27.0-32.0) MCHC 34.0 g/dL (32.0-36.0) RDW 13.3 % (10.5-14.5) PLT 272 10*3/uL (150-450) MPV 9.4 fL (7.1-10.7) Neut % 63.7 % (35.0-75.0) Lymph % 28.3 % (16.0-52.0) [place] % 6.0 % (0.0-8.0) Eos % 0.9 % (0.0-5.0) Baso % 1.1 % (0.0-4.0) Neut # 4.6 10*3/uL (1.8-7.7) Lymph # 2.1 10*3/uL (1.2-4.8) [place] # 0.4 10*3/uL (0.0-0.8) Eos # 0.1 [...] >60 ml/min/1.73m2 (>59) GFR Interpretation <SEE NOTE> 5 Laboratory test finding 07/16/2017 Amylase 58 U/L [...] % (35.0-75.0) Lymph % 25.9 % (16.0-52.0) [place] % 6.7 % (0.0-8.0) Eos % 2.8 % (0.0-5.0) Baso % 1.4 % (0.0-4.0) Neut # 3.6 10*3/uL (1.8-7.7) Lymph # 1.5 10*3/uL (1.2-4.8) [place] # 0.4 10*3/uL (0.0-0.8) Eos # 0.2 [...] >60 ml/min/1.73m2 (>59) GFR Interpretation <SEE NOTE> 6 1 PER NCEP ATP III GUIDELINES: RESULTS LOWER THAN 40 MG/DL ARE SUGGESTIVE OF INCREASED RISK FOR CORONARY ARTERY DISEASE. RESULTS > OR=TO 60 MG/DL ARE CONSIDERED A NEGATIVE RISK FACTOR. 2 INTERPRETATION OF CHOL-HDL RATIO CHD RISK FEMALE MALE VERY HIGH >8.3 >14.3 HIGH 5.6- 8.3 6.7- 14.3 AVERAGE 3.7- 5.6 4.0- 6.7 BELOW AVERAGE 2.5- 3.7 2.7- 4.0 PROTECTED <2.5 <2.7 3 PER NCEP ATP III GUIDELINES: OPTIMAL < 100 NEAR OPTIMAL 100 - 129 BORDERLINE HIGH 130 - 159 HIGH 160 - 189 VERY HIGH > 189 4 NORMAL KIDNEY FUNCTION OR MILD DISEASE - GFR >OR=60 CHRONIC KIDNEY DISEASE - GFR 15 - 59 RENAL FAILURE - GFR <15 Est. GFR calculation based on the MDRD study equation, which assumes a steady state for creatinine. Est. GFR should not be used for medication dosing. 5 NORMAL KIDNEY FUNCTION OR MILD DISEASE - GFR >OR=60 CHRONIC KIDNEY DISEASE - GFR 15 - 59 RENAL FAILURE - GFR <15 Est. GFR calculation based on the MDRD study equation, which assumes a steady state for creatinine. Est. GFR should not be used for medication dosing. 6 NORMAL KIDNEY FUNCTION OR MILD DISEASE - GFR >OR=60 CHRONIC KIDNEY DISEASE - GFR 15 - 59 RENAL FAILURE - GFR <15 Est. GFR calculation based on the MDRD study equation, which assumes a steady state for creatinine. Est. GFR should not be used for medication dosing. Procedures Date CPT Code Description Status 03/08/2018 36887 Tympanometry Completed 12/11/2017 29098 Visual Screening Test Completed 12/11/2017 26043 EKG Completed 12/11/2017 49301 Audiometry, Deny, Screening Completed 10/26/2017 14830 Spirometry Completed 10/23/2017 02218 Spirometry Completed 10/23/2017 93672 Tympanometry Completed 01/10/2016 09005 Spirometry Completed 01/10/2016 93955 Tympanometry Completed 09/06/2015 74845 Visual Screening Test Completed 09/06/2015 64364 EKG Completed 09/06/2015 44464 Audiometry, Bekesy, Screening Completed Encounters Type Date Location Provider CPT E/M Dx Office Visit 03/08/2018 4:15p Aishwarya Amador M.D. 58022 J30.9 F17.210 L20.9 K58.0 K21.9 M15.9 M79.671 J44.9 E78.2 R10.84 R11.0 F41.9 H66.91 H92.01 M25.511 Office Visit 02/11/2018 8:30a Ina Schaefer [place] [facility] [address] H66.92 H62.42 Office Visit 12/26/2017 4:15p Aishwarya Amador M.D. 24352 J30.9 F17.210 L20.9 K58.0 K21.9 M15.9 M79.671 J44.9 E78.2 R10.84 R11.0 F41.9 D48.5 Office Visit 12/11/2017 8:30[place] [address] J30.9 F17.210 L20.9 K58.0 K21.9 Z00.01 Z12.11 Z12.31 Z53.29 Z68.23 Office Visit 10/26/2017 2:30[place] [address] J30.9 F17.210 L20.9 K58.0 K21.9 R09.81 J01.90 J20.9 R06.02 R05 Office Visit 10/23/2017 10:15a Fabián Ling [facility] [address] R05 R50.9 H92.09 Office Visit 10/02/2017 11:30[place] [address] J30.9 F17.210 L20.9 K58.0 K21.9 R05 R09.81 J01.90 J20.9 R06.02 Office Visit 08/03/2017 4:45p Aishwarya Amador M.D. 72374 J30.9 F17.210 L20.9 R10.84 K58.0 K21.9 L02.91 Office Visit 07/16/2017 11:30a Aishwarya Amador M.D. 11954 J30.9 F17.210 L20.9 R10.84 K58.0 K21.9 L02.91 Office Visit 01/10/2016 2:00p Aishwarya Amador M.D. 52226 J20.9 J01.40 H66.93 R05 R06.02 R09.81 J30.9 F17.210 L20.9 Office Visit 09/21/2015 8:30a Fabián Ling [facility] 53848 Z01.818 F17.200 M79.671 Office Visit 09/06/2015 1:30p Fabián Ling [facility] 14901 Z00.01 F17.200 R05 E55.9 E03.9 L20.89 Plan of Care 03/08/2018 - Aishwarya Mercado M.D.J30.9 Allergic rhinitis, unspecifiedComments: INCREASE PO FLUID USE ANTIHISTAMINE PRN SECOND HAND SMOKING AVOIDANCE SMOKING JSOIQYDFJK10.210 Nicotine dependence, cigarettes, uncomplicatedComments:SMOKING CESSATION EOYSCVYEBOUH71.9 Atopic dermatitis, unspecifiedComments:SKIN CARE INSTRUCTIONS LOTION OR BABY OIL 2-3 APPLICATION PER DAYUSE MOISTURIZING SOAPAVOID PROLONGED WATER EXPOSUREAVOID USING HOT WATER IN URAXREU03.0 Irritable bowel syndrome with diarrheaComments:TYLENOL OR MOTRIN PRNINCREASE PO FLUIDF/U QJRKZZYAY88.9 Gastro-esophageal reflux disease without esophagitisComments:AVOID CAFFEINE, ETOH AND SPICY FOODSTUMS OR MYLANTA PRN CALL WITH PROBLEMS OR CONCERNSSMOKING LIXLBKMYDM73.9 Polyosteoarthritis, unspecifiedComments:EXERCISE/HEAT/MESSAGETYLENOL OR MOTRIN PRNAVOID HEAVY LIFTINGWT LOSSM79.671 Pain in right footComments:EXERCISE/HEAT/MESSAGETYLENOL OR MOTRIN PRNACE WRAP PRN USE SHOES INSERTS/ ZBMKMQOW90.9 Chronic obstructive pulmonary disease, unspecifiedComments:INCREASE PO FLUIDRESTSMOKING KNNKJWIKIR08.2 Mixed hyperlipidemiaComments:DIET REVIEWED CONTINUE DIETWT LOSSF/ U LAB FBWR10.84 Generalized abdominal painComments:TYLENOL OR MOTRIN PRNINCREASE PO FLUIDLAXATIVE PRN F/U DIRECTEDF/U XYBITMVYA10.0 NauseaComments:INCREASE PO FLUID SMALL SIPS OF FLUIDS AT A TIME SMALL FREQUENT MEALS F/U DIRECTED CALL IF YOU HAVE VOMITING OR WITH S/S OF GMOAZPVLUWTC23.9 Anxiety disorder, unspecifiedComments:COUNCELLING AND REASSURANCE RELAXATION TECHNIQUES DISCUSSEDCOUNSELED RE: STRESSORS IN LIFE AVOID ALLENERGY/HIGH CAFFEINE SCZNUYQ96.91 Otitis media, unspecified, right earNew Medication:Amoxicillin 500 mgPrednisone 20 mgComments:INCREASE PO FLUID TYLENOL OR MOTRIN PRN ANTIHISTAMINE PRNSMOKING CESSATION VLNSGQTSGEND06.01 Otalgia, right earComments:INCREASE PO FLUIDTYLENOL OR MOTRIN PRNANTIHISTAMINE PRNRESTSMOKING CESSATION PFNTANFRPNNI74.511 Pain in right shoulder
[2018-03-26 15:32] VITALS: BP 121/62
[2018-03-26] MEDS ORDERED: Ibuprofen TAB* 400 MG PO ONE (16:21)
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
== END 2018-03-26 16:35 | disposition home or self-care (01) ==
LOC: UCCORT 14:57
DX: S43.401A Unspecified sprain of right shoulder joint, initial encounter (principal); X50.0XXA Overexertion from strenuous movement or load, initial encounter; Y92.89 Other specified places as the place of occurrence of the external cause; Z85.828 Personal history of other malignant neoplasm of skin; Z80.3 Family history of malignant neoplasm of breast; F17.210 Nicotine dependence, cigarettes, uncomplicated
CPT/HCPCS: 99213; A9270-GY; G0463

== ENCOUNTER 2018-04-02 13:50 | Emergency (ER) | payer OTHER ==
[2018-04-02 14:27] VITALS: BP 132/78
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
== END 2018-04-02 14:57 | disposition left against medical advice (07) ==
LOC: UCCORT 13:50
DX: R51 Headache (principal); F17.210 Nicotine dependence, cigarettes, uncomplicated
CPT/HCPCS: 99212; G0463

== ENCOUNTER 2019-03-31 16:50 | Emergency (ER) | payer BC, MEDICAID ==
--- NOTE | 2019-03-31 18:09 | UC ---
Ear Complaint HPI - HPI Summary HPI Summary: 53 year old female with no PMH presents with ear pain, has been eval'd by ENT< placed on steroids in past, put on steroids x 3 days without improvement. ? drainage from left ear last night. Denies hearing loss, tinnitus, ringing. Mild pain with chewing, no posteior pain. Has been seen by PCP, ENT for condition, no improvment with oral ABX. also has h/o headaches being worked up by PCP - History of Current Complaint Stated Complaint: LEFT EAR PAIN Time Seen by Provider: 03/31/19 17:48 Hx Obtained From: Patient Hx Last Menstrual Period: Spotting 06/26/16 Onset/Duration: Sudden Onset, Lasting Weeks Severity Initially: Moderate Severity Currently: Moderate Associated Signs/Symptoms: Positive: Discharge. 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 TUBAL LIGATION MANY YEARS AGO. 2010 LEFT INGUINAL HERNIA REPAIR, [facility]. SURGERY TO INSERT MESH TO SUPPORT BLADDER AND UTERUS, (states mesh attatched to spine). 2014 RIGHT FOOT BUNIONECTOMY, [facility]. 09/2015 REMOVAL OF SCREW RIGHT FOOT FIRST METATARSAL, [facility] - Family History Known Family History: Positive: Cardiac Disease Negative: Hypertension, Diabetes, Blood Disorder Family History: Breast cancer - Social History Alcohol Use: Rare Alcohol Amount: HOLIDAYS Substance Use Type: None Smoking Status (MU): Heavy Every Day Tobacco Smoker Type: Cigarettes Amount Used/How Often: 1 PPD Length of Time of Smoking/Using Tobacco: 30 YRS Have You Smoked in the Last Year: Yes Household Exposure Type: Cigarettes - Immunization History Most Recent Tetanus Shot: WITH 5 YEARS Review of Systems All Other Systems Reviewed And Are Negative: Yes Constitutional: Positive: Negative Eyes: Positive: Negative ENT: Positive: Ear Ache Is Patient Immunocompromised?: No Physical Exam Triage Information Reviewed: Yes Appearance: Well-Appearing, No Pain Distress, Well-Nourished Vital Signs Reviewed: Yes Eyes: Positive: Conjunctiva Clear, Other: - EMOI ENT: Positive: Hearing grossly normal, TMs normal, Other - directly infront of L TM, not involving TM is asuperficial appearing abrasion from 2-4 oclock without drainage, no associated eythema, cerumen in ear canal. ear thaw shed heater tender postiorly during examination. normal TM, normal rest of ear canal. no mastoid tenderness b/l.. Negative: TM bulging, TM dull, TM red Neurological Exam: Normal Psychological Exam: Normal Skin Exam: Normal Ear Complaint Course/Dx - Course Course Of Treatment: Discussed with patient, ABX ear drops given, return within 5-7 days if no improvement for possible head CT due to PEREZ history or follow up with PCP for further work up - Differential Dx/Diagnosis Differential Diagnosis/HQI/PQRI: Otitis Externa, Otitis Media Provider Diagnosis: Otitis externa Discharge - Sign-Out/Discharge Documenting (check all that apply): Patient Departure All imaging exams completed and their final reports reviewed: No Studies - Discharge Plan Condition: Good Disposition: HOME Prescriptions: Ofloxacin 0.3% (Ear Drop)* [Floxin 0.3% OTIC.REYNA (Ear Drop)] 5 drop LEFT EAR DAILY #1 btl Patient Education Materials: Otitis Externa (ED) Referrals: Aishwarya Mercado MD [Primary Care Provider] - Additional Instructions: - Otic drops to left ear 1-2 times daily x 7 days - Follow up with ENT - IF no improvement within 5-7 days, return to urgent care for further imaging - Motrin as needed for pain - Billing Disposition and Condition Condition: GOOD Disposition: Home
[2019-03-31 18:12] VITALS: BP 125/51
== END 2019-03-31 18:18 | disposition home or self-care (01) ==
LOC: UCCORT 16:50
DX: H60.92 Unspecified otitis externa, left ear (principal); F17.210 Nicotine dependence, cigarettes, uncomplicated
CPT/HCPCS: 99212; G0463

== ENCOUNTER 2019-08-22 09:51 | Emergency (ER) | payer BC, MEDICAID ==
[2019-08-22 10:52] VITALS: BP 128/70
--- NOTE | 2019-08-22 11:15 | UC ---
Shoulder Pain HPI - HPI Summary HPI Summary: 54 y/o female presents to the urgent care c/o left shoulder pain w/ progressive decrease ROM due to pain s/p falling down the stairs on 08/05/2019. Pt states she is not sure if she landed in her left shoulder, b/c she has a bruise was in the Rt thigh which has now resolved. She thought pain was going to improve w/ time, but it has worsen. Pain is sharp w/ movement 7/10 and radiates to the LF upper arm. Pt has not taking any medication for pain and has been usin CBD oil to alleviate symptoms She has Hx of rotator cuff tear on her RT shoulder which has been managed by DR Sanchez. She has been doing physical therapy for that. Pt denies SOB, dizziness, chest pain, abdominal pain, N/V/D or numbness or tingling sensation over the left extremity. LMP: Hx B/L tubal ligation many years ago. - History of Current Complaint Chief Complaint: UCUpperExtremity Stated Complaint: LEFT SHOULDER INJURY Time Seen by Provider: 08/22/19 10:54 Hx Obtained From: Patient Hx Last Menstrual Period: B/L tubal ligation many years ago ?: No Onset/Duration: Gradual Onset, Lasting Weeks - 2.5weeks fell down the stairs, Still Present, Worse Since - 5 days Timing: Constant Severity Initially: Moderate Severity Currently: Moderate Location Of Pain: Is Discrete @ - left shoulder, Radiates To - left upper arm Pain Intensity: 7 Pain Scale Used: 0-10 Numeric Character: Sharp - w/ movement, Spasmodic - at rest Aggravating Factor(s): Movement, Lifting, External Rotation, Abduction Alleviating Factor(s): Ice, Other - CBD oil Associated Signs And Symptoms: Positive: Negative. Negative: Swelling, Bruising , Numbness/Tingling Related History: Dominant Hand Right - Risk Factors Non-Orthopedic Risk Factor: Negative DVT Risk Factors: Negative Septic Arthritis Risk Factor: Negative - Allergies/Home Medications Allergies/Adverse Reactions: Allergies Allergy/AdvReac Type Severity Reaction Status Date / Time red dye AdvReac Unknown Nausea Verified 08/22/19 10:41 Home Medications: Home Medications Cbd Oil 0.5 drop PO DAILY PRN 08/22/19 [History] PMH/Surg Hx/FS Hx/Imm Hx Previously Healthy: Yes - Pt denies PMHX - Surgical History Surgical History: Yes Surgery Procedure, Year, and Place: 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 TUBAL LIGATION MANY YEARS AGO. 2010 LEFT INGUINAL HERNIA REPAIR, [facility]. SURGERY TO INSERT MESH TO SUPPORT BLADDER AND UTERUS, (states mesh attatched to spine). 2014 RIGHT FOOT BUNIONECTOMY, [facility]. 09/2015 REMOVAL OF SCREW RIGHT FOOT FIRST METATARSAL, [facility] - Family History Known Family History: Positive: Cardiac Disease Negative: Hypertension, Diabetes, Blood Disorder Family History: Breast cancer - Social History Occupation: Employed Full-time Lives: With Family Alcohol Use: Rare Alcohol Amount: [place] Substance Use Type: None Smoking Status (MU): Heavy Every Day Tobacco Smoker Type: Cigarettes Amount Used/How Often: 1 PPD Length of Time of Smoking/Using Tobacco: 30 YRS Have You Smoked in the Last Year: Yes Household Exposure Type: Cigarettes - Immunization History Most Recent Tetanus Shot: WITH 5 YEARS Review of Systems All Other Systems Reviewed And Are Negative: Yes Constitutional: Positive: Negative Skin: Positive: Negative Eyes: Positive: Negative ENT: Positive: Negative Respiratory: Positive: Negative Cardiovascular: Positive: Negative Gastrointestinal: Positive: Negative Genitourinary: Positive: Negative Motor: Positive: Negative Neurovascular: Positive: Negative Musculoskeletal: Positive: Decreased ROM - left shoulder, Other: - left shoulder pain s/p falling down the stairs 2.5 weeks ago Neurological: Positive: Negative Psychological: Positive: Negative Is Patient Immunocompromised?: No Physical Exam - Summary Physical Exam Summary: Vital Signs Reviewed: Yes GENERAL: Well-Appearing, No Pain Distress, Well-Nourished - female w/o any apparent pain distress Eyes: Positive: Conjunctiva Clear - PERRL,EOMI ENT: Positive: Normal ENT inspection, Hearing grossly normal, Pharyngeal erythema - mild, Nasal drainage - clear, Uvula midline Neck: Positive: Supple, Nontender, No Lymphadenopathy Respiratory: Positive: Chest non-tender, Lungs clear, Normal breath sounds, No respiratory distress Cardiovascular: Positive: RRR, No Murmur, Pulses Normal, Brisk Capillary Refill Abdomen Description: Positive: Nontender, No Organomegaly, Soft. Negative: CVA Tenderness (R), CVA Tenderness (L) Bowel Sounds: Positive: Present Musculoskeletal: LF shoulder: The L shoulder is with/without obvious asymmetry or deformity when compared to the R shoulder. posterior shoulder w/ ecchymosis and bruising, no crepitus. No bony deformity or prominence of humeral head. No erythema, warmth. No Point Tenderness to palpation over the clavicle, or scapula. positive tenderness over Acromioclavicular joint and humeral head with mild swelling, NT to palpation of the bicipital groove . NT to palpation of the muscles of the sternocleidomastoid, pectoralis, biceps/triceps , deltoid, trapezius, . Limited ROM due to pain especially in adduction and abduction.on both passive and active, internal/external rotation, flexion/ extension. "empty can and drop arm test unable to perform due to pain. No axillary tenderness or lymphadenopathy. Normal sensation over the deltoid and fingers. Distal motor and neurovascular status is intact. Neurological Exam: Normal Psychological Exam: Normal Skin Exam: Normal Triage Information Reviewed: Yes Vital Signs: Initial Vital Signs Temp 97.4 F 08/22/19 10:41 Pulse 67 08/22/19 10:41 Resp 18 08/22/19 10:41 BP 128/70 08/22/19 10:41 Pulse Ox 98 08/22/19 10:41 Shoulder Course/Dx - Course Course Of Treatment: 54 y/o female presents to the urgent care c/o left shoulder pain w/ progressive decrease ROM due to pain s/p falling down the stairs on 08/05/2019. Pt states she is not sure if she landed in her left shoulder, b/c she has a bruise was in the Rt thigh which has now resolved. She thought pain was going to improve w/ time, but it has worsen. Pain is sharp w/ movement 7/10 and radiates to the LF upper arm. She has Hx of rotator cuff tear on her RT shoulder which has been managed by DR Sanchez. She has been doing physical therapy for that. Pt has not taking any medication for pain and has been usin CBD oil to alleviate symptoms. Pt denies SOB, dizziness, chest pain, abdominal pain, N/V/D or numbness or tingling sensation over the left extremity. LMP: Hx B/L tubal ligation many years ago. Hx obtained. LF shoulder X-ray ordered: IMPRESSION: NO ACUTE OSSEOUS INJURY. IF SYMPTOMS PERSIST, RECOMMEND REPEAT IMAGING. Pt w/ probably a shoulder sprain. Pt declined ibuprofen at the clinic. Pt's Rx Ibuprofen to alleviate symptoms. Pt declined shoulder sling and she states she has one at home and she will used. Advised to wear shoulder sling for 3-4 days. Advised to f/u with her Orthopedic DR Sanchez or DR Bustos form the [facility] in 3 days for further management since she may have a rotator cuff injur. D/c instructions explained. Pt understood and agreed w/ plan of care. - Differential Dx/Diagnosis Differential Diagnosis/HQI/PQRI: AC Separation, Arthritis, Contusion, Dislocation, Fracture (Closed), Rotator Cuff Injury, Sprain, Strain, Tendonitis Provider Diagnosis: Left shoulder pain, Sprain of left shoulder Discharge ED - Sign-Out/Discharge Documenting (check all that apply): Patient Departure - D/C home All imaging exams completed and their final reports reviewed: Yes - Discharge Plan Condition: Stable Disposition: HOME Prescriptions: Ibuprofen TAB* [Motrin TAB* 800 MG] 800 mg PO Q6H PRN #30 tab PRN Reason: moderate pain Patient Education Materials: Shoulder Sprain (ED) Forms: *Work Release Referrals: Aishwarya Mercado MD [Primary Care Provider] - 3 Days Maria R Bustos MD [Medical Doctor] - 2 Days Additional Instructions: 1-Please take Ibuprofen PO q6-8hrs prn after meals as directed to alleviate pain and swelling. 2-Please apply ice, keep your shoulder immobilized with the shoulder sling for 3-4 days and then resume movement slowly as directed 3- Please f/u with your Orthopedic Dr Sanchez or DR Bustos in 2-3 days for further for further evaluation and treatment on your Shoulder sprain. - Billing Disposition and Condition Condition: STABLE Disposition: Home
== END 2019-08-22 11:58 | disposition home or self-care (01) ==
LOC: UCCORT 09:51
DX: S43.402A Unspecified sprain of left shoulder joint, initial encounter (principal); W10.9XXA Fall (on) (from) unspecified stairs and steps, initial encounter; Y92.9 Unspecified place or not applicable
CPT/HCPCS: 99212; G0463

== ENCOUNTER 2019-09-05 14:44 | Emergency (ER) | payer BC, MEDICAID ==
[2019-09-05 15:43] VITALS: BP 130/76
--- NOTE | 2019-09-05 16:29 | UC ---
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 No measured fever, felt hot/cold. Taking airborne supplements prn. " -she is here bc she thinks this will turn into bronchitis and wants to catch it before it does. here w/ her dtr. -she has not taken temp -hasnt taken any anti-pyretics today -has been prescribed alb but doesnt have any to take --no asthma, no wheezing. -normally gets an abx for bronchitis -cont to smoke 1 PPD. 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 TUBAL LIGATION MANY YEARS AGO. 2010 LEFT INGUINAL HERNIA REPAIR, [facility] [place]. SURGERY TO INSERT MESH TO SUPPORT BLADDER AND UTERUS, (states mesh attatched to spine). 2014 RIGHT FOOT BUNIONECTOMY, [facility] [place]. 09/2015 REMOVAL OF SCREW RIGHT FOOT FIRST METATARSAL, [facility] [place] - Family History Known Family History: Positive: Cardiac Disease, Respiratory Disease - brother w / asthma Negative: Hypertension, Diabetes, Blood Disorder Family History: Breast cancer - Social History Alcohol Use: Occasionally Alcohol Amount: [place] Substance Use Type: None Smoking Status (MU): Heavy Every Day Tobacco Smoker Type: Cigarettes Amount Used/How Often: 1 PPD Length of Time of Smoking/Using Tobacco: 30 YRS Have You Smoked in the Last Year: Yes Household Exposure Type: Cigarettes - Immunization History Most Recent Tetanus Shot: WITH 5 YEARS Review of Systems All Other Systems Reviewed And Are Negative: Yes Constitutional: Positive: Fatigue Skin: Positive: Negative. Negative: Rash Eyes: Positive: Negative ENT: Positive: Negative. Negative: Sore Throat, Ear Ache, Sinus Pain/Tenderness Respiratory: Positive: Cough. Negative: Shortness Of Breath Cardiovascular: Positive: Negative Gastrointestinal: Positive: Negative Genitourinary: Positive: Negative Motor: Positive: Negative Neurovascular: Positive: Negative Musculoskeletal: Positive: Negative Neurological: Positive: Negative Psychological: Positive: Negative Is Patient Immunocompromised?: No Physical Exam Triage Information Reviewed: Yes Appearance: Well-Appearing, No Pain Distress - mildly ill Vital Signs: Initial Vital Signs Temp 98.3 F 09/05/19 15:39 Pulse 65 09/05/19 15:39 Resp 16 09/05/19 15:39 BP 130/76 09/05/19 15:39 Pulse Ox 100 09/05/19 15:39 Vital Signs Reviewed: Yes Eye Exam: Normal Eyes: Positive: Conjunctiva Clear ENT Exam: Normal ENT: Positive: Pharynx normal - + PND, TMs normal, Uvula midline. Negative: Pharyngeal erythema, Nasal congestion, Nasal drainage, TM bulging, TM dull, TM red, Sinus tenderness Dental Exam: Normal Dental: Positive: Abscess @ Neck: Positive: Supple, Nontender, No Lymphadenopathy Respiratory: Positive: Lungs clear, No respiratory distress, No accessory muscle use, Decreased breath sounds - mild b/l. Negative: Crackles, Rhonchi, Stridor, Wheezing Cardiovascular Exam: Normal Cardiovascular: Positive: RRR, No Murmur Abdominal Exam: Normal Musculoskeletal Exam: Normal Neurological Exam: Normal Psychological Exam: Normal Skin Exam: Normal Respiratory Course/Dx - Course Course Of Treatment: no e/o bacterial infection. no ST/ear pain/sinus pain. no rash. + smoker - could have COPD as she gets bronchitis annually. still smokes 1 PPD x 30 yrs -rec dc smokinmg -lungs clear but slightly diminisehd. no role for prednisone or abx -supportive treatment, fluids rest -rec PFTs for COPD testing -she feels that she needs an abx bc it will getr worse and she will need one marty week. explained that abx are not indicated for bronchitis and they are not given prophylactically. - Differential Dx/Diagnosis Differential Diagnosis/HQI/PQRI: Asthma, Bronchitis, Exacerbation Of COPD, Lower Resp Infection Provider Diagnosis: Bronchitis Discharge ED - Sign-Out/Discharge Documenting (check all that apply): Patient Departure All imaging exams completed and their final reports reviewed: No Studies - Discharge Plan Condition: Stable Disposition: HOME Prescriptions: Albuterol HFA INHALER* [Ventolin HFA Inhaler*] 2 puff INH Q4H PRN 14 Days #1 mdi PRN Reason: Cough Patient Education Materials: Acute Bronchitis (ED) Referrals: Aishwarya Mercado MD [Primary Care Provider] - 1 Week Additional Instructions: There is no evidence for bacterial infection and therefore no role for an antibiotic. There is no fever and your lungs are clear. Use the albuterol 2 puffs every 4-6 hrs while you are sick. Drink plenty of fluids. Tylenol/ ibuprofen for pain/sweats/discomfort. mucinex can be helpful as well. You should follow up if you develop a fever > 100.4 that persists or symptoms that worsen. Testing for emphysema should be considered due to your smoking history. It is strongly recommended that you stop smoking - Billing Disposition and Condition Condition: STABLE Disposition: Home
== END 2019-09-05 16:47 | disposition home or self-care (01) ==
LOC: UCCORT 14:44
DX: J40 Bronchitis, not specified as acute or chronic (principal); F17.210 Nicotine dependence, cigarettes, uncomplicated
CPT/HCPCS: 99212; G0463